=== PATIENT | male | born 1970 | race Caucasian/White ===

== ENCOUNTER 2016-12-06 11:08 | Outpatient (CLI) | payer BC, OTHER ==
--- NOTE | 2016-12-06 13:14 | Ultrasound Report ---
EXAM: ABDOMEN ULTRASOUND LIMITED, RUQ EXAM DATE: 12/06/2016 11:56 AM. CLINICAL HISTORY: Right back pain. COMPARISON: None. TECHNIQUE: Real-time scanning was performed with static images obtained. FINDINGS: Liver: Mild enlarged and diffusely increased in echogenicity with areas of focal fatty sparing. 20.0 cm. Main portal vein flow: Hepatopetal. Gallbladder: Normal. No stones, wall thickening, or sonographic Gregorio's sign. Biliary System: CBD measures 8 mm. Borderline dilation of the extrahepatic duct. Other: Right kidney measures 14.0 cm without hydronephrosis. IMPRESSION: 1. No evidence of cholelithiasis or cholecystitis. 2. Mild dilatation of the common duct. Etiology is not identified by ultrasound, however the distal d uct/pancreatic head is obscured by bowel gas. MRCP would have improved characterization of this area. 3. Hepatomegaly with fatty infiltration of the liver. [facility] Referring Provider Line: [phone] SITE ID: [id number]
--- NOTE | 2016-12-06 22:03 | XRAY Report ---
EXAM: THORACIC SPINE RADIOGRAPHY EXAM DATE: 12/06/2016 12:12 PM. CLINICAL HISTORY: Right thoracic pain. COMPARISON: MRI 08/20/2009. TECHNIQUE: 2 views. FINDINGS: Alignment: Normal. No spondylolisthesis or scoliosis. Bones: No fractures or bone lesions. Anterior cervical fusion hardware partially imaged. Disks: Minimal multilevel decreased disk height with anterior and lateral marginal osteophytes. Soft Tissues: Within normal limits. IMPRESSION: Minimal thoracic spondylosis. No acute abnormality. [facility] Referring Provider Line: [phone] SITE ID: [id number]
== END 2016-12-06 11:09 | disposition home or self-care (01) ==
LOC: DI 11:08
PROVIDERS: ATTEND Nurse Practitioner Family
DX: K76.0 Fatty (change of) liver, not elsewhere classified (principal); M47.894 Other spondylosis, thoracic region; K83.8 Other specified diseases of biliary tract
CPT/HCPCS: 72070; 76705

== ENCOUNTER 2017-01-12 11:35 | Outpatient (CLI) | payer BC, OTHER | END 2017-01-12 11:36 | disposition home or self-care (01) | LOC: SC 11:35 | PROVIDERS: ATTEND Internal Medicine Pulmonary Disease | DX: G47.33 Obstructive sleep apnea (adult) (pediatric) (principal) | CPT/HCPCS: 99203; 99212 ==

== ENCOUNTER 2017-08-15 08:42 | Outpatient (CLI) | payer BC, OTHER ==
[2017-08-15] MEDS ORDERED: IOPAMIDOL-300 50 ML VIAL ONE (09:20)
[2017-08-15] MEDS ORDERED: IOPAMIDOL-300 100 ML VIAL ONE (09:20)
[2017-08-15 09:23] LABS: CREATININE 0.6 mg/dL (0.6-1.2)
[2017-08-15] MEDS ORDERED: IOPAMIDOL-300 100 ML VIAL IVP ONE (10:32)
[2017-08-15] MEDS ORDERED: IOPAMIDOL-300 50 ML VIAL PO ONE (10:32)
--- NOTE | 2017-08-16 17:48 | CT Report ---
EXAM: CT ABDOMEN AND PELVIS EXAM DATE: 08/15/2017 10:21 AM. CLINICAL HISTORY: Right lower quadrant pain, silhouettes sign COMPARISONS: Ultrasound 12/06/16. TECHNIQUE: Routine helical CT imaging was performed through the abdomen and pelvis. IV contrast: Yes . Enteric contrast: Yes. Reconstructions: Coronal and sagittal. In accordance with CT protocol optimization, one or more of the following dose reduction techniques w ere utilized for this exam: automated exposure control, adjustment of mA and/or KV based on patient s ize, or use of iterative reconstructive technique. FINDINGS: Lung Bases: Unremarkable. Liver: 08/15/2017. No suspicious masses. Gallbladder/Bile Ducts: Unremarkable. Spleen: Unremarkable. Pancreas: Unremarkable. Adrenal Glands: Small, 20 mm right adrenal hypodense nodule is statistically a benign adenoma. No lef t adrenal mass seen.. Kidneys: Tiny cysts bilateral. No suspicious masses or hydronephrosis. Peritoneal Cavity/Bowel: No bowel obstruction or inflammatory process seen. No free air or significan t free fluid. No masses or adenopathy. The appendix is not seen but there is no evidence of appendici tis. Moderate stool burden. Pelvic Organs: Bladder and prostate appear unremarkable. Vasculature: No aneurysms or other significant abnormality. Bones: No significant abnormality. Other: None. IMPRESSION: 1. No acute inflammatory or obstructive process seen in the abdomen or pelvis. 2. Moderate stool burden. 3. Probable 2 cm right adrenal adenoma. 4. Fatty liver. [facility] Referring Provider Line: [phone] SITE ID: [id number]
== END 2017-08-15 08:43 | disposition home or self-care (01) ==
LOC: LAB 08:42
PROVIDERS: ATTEND Internal Medicine
DX: R10.31 Right lower quadrant pain (principal); E11.9 Type 2 diabetes mellitus without complications
CPT/HCPCS: 36415; 74177; 82565; Q9967